=== PATIENT | male | born 1960 | race Caucasian/White ===

== ENCOUNTER 2017-05-15 07:04 | Day surgery (SDC) | payer OTHER ==
[~2017-05-15] VITALS: Ht 177.8 cm; Wt 93.0 kg
[~2017-05-15 07:04] MED LIST: ASPIR 8181 M1 PO; CARVEDILOL25 MG PO; LASIX20 MG PO; LISINOPRIL20 MG PO; NAPROSYN500 MG PO; PROPECIA1 MG PO; SPIRONOLACTONE25 MG PO
== END 2017-05-15 11:30 | disposition home or self-care (01) ==
LOC: CATH 07:04
DX: Z45.02 Encounter for adjustment and management of automatic implantable cardiac defibrillator (principal); I42.0 Dilated cardiomyopathy; I44.7 Left bundle-branch block, unspecified; I34.0 Nonrheumatic mitral (valve) insufficiency; I11.0 Hypertensive heart disease with heart failure; I50.22 Chronic systolic (congestive) heart failure; Z79.82 Long term (current) use of aspirin
CPT/HCPCS: C1721; J0690; J2250; J3010; S0020